=== PATIENT | male | born 1955 | race Caucasian/White ===

== ENCOUNTER 2018-04-14 07:10 | Inpatient (IN) ==
[2018-04-14] MEDS ORDERED: Sodium Chlor 0.9% Inj 500 ML IV.CONT ONE (07:45)
[2018-04-14] MEDS ORDERED: Chlorhexidine Gluconate 2% 1 Pack (2 Cloths) TOPICAL ONE (07:45)
[2018-04-14] MEDS ORDERED: Chlorhexidine 4% Topical 120 APPLIC/120 ML Bottle TOPICAL SCH (07:45)
[2018-04-14] MEDS ORDERED: Metoprolol Tartrate 25 MG Tablet PO ONE (07:45)
[2018-04-14] MEDS ORDERED: Dexamethasone Inj 20 MG/5 ML Vial IV.PUSH SCH (08:00)
[2018-04-14] MEDS ORDERED: ceFAZolin 2 GM Premix Inj 2 GM/50 ML PIGGYBACK IV.SIG SCH (08:00)
[2018-04-14] MEDS ORDERED: Vancomycin Inj 1,000 MG in Sodium Chlor 0.9% Inj 250 ML IV.SIG SCH (08:00)
[2018-04-14] MEDS ORDERED: Sodium Chlor 0.9% Inj 40 ML, Bupivacaine Liposo PF 1.3% Inj 20 ML P-ARTICULR SCH ×2 (08:30)
[2018-04-14] MEDS ORDERED: SODIUM CHLOR 0.9% IV.SIG SCH (08:30)
[2018-04-14] MEDS ORDERED: TRANEXAMIC ACID IV.SIG SCH (08:30)
[2018-04-14] MEDS ORDERED: Bisacodyl 10 MG Supp RECTAL PRN (08:33)
[2018-04-14] MEDS ORDERED: Post-op Orders (for Pharmacy) OTHER STA (08:33)
[2018-04-14] MEDS ORDERED: Zolpidem Tartrate 5 MG Tablet PO PRN (08:33)
[2018-04-14] MEDS ORDERED: HYDROmorphone PF Inj 1 MG/ML Ampul IV.PUSH PRN (08:33)
[2018-04-14] MEDS ORDERED: Tranexamic Acid Inj 3,000 MG in Sodium Chlor 0.9% Inj 100 ML P-ARTICULR ONE (11:00)
--- NOTE | 2018-04-14 11:48 | P.OP ---
Procedure: PREOPERATIVE DIAGNOSIS: Right hip osteoarthritis. POSTOPERATIVE DIAGNOSIS: Right hip osteoarthritis. PROCEDURE PERFORMED: Right total hip arthroplasty posterior approach. SURGEON: Jaswant Angela MD ENTERTAINMENT MUSICIAN: NAEL Go ANESTHESIA: General. ESTIMATED BLOOD LOSS: 200 mL COMPLICATIONS: None. IMPLANT USED: Depuy Corail femoral stem [] 13 high offset [place] Gripsion Cup [] 56 solid Poly insert liner neutral [] 56 x 30 6+4 high offset with a 15 degree posterior high wall femoral head [] 36 ceramic neck length [] +8.5 JUSTIFICATION: This patient presents to the orthopedic clinic and was evaluated by the undersigned with chief complaint of severe right hip pain. The pain is constant and progressive and interfering with activities of daily living. The patient has failed greater than 3 months of nonoperative conservative treatment to include analgesic and nonsteroidal anti-inflammatory medications, physical therapy, cortisone injections, ambulatory assistive aids, home exercise program, activity modification and weight loss. X-rays of the right hip reveal severe osteoarthritis with [id number] joint space narrowing, subchondral sclerosis, subchondral cysts, osteophyte formation with deformity and subluxation. The patient was counseled on risks, benefits, and alternatives to a total hip arthroplasty. The risks were discussed, which include, but are not limited to anesthesia, bleeding, infection, damage to nerves and blood vessels, pain, stiffness, failure of components, fracture, dislocations, leg length discrepancies, blood clots, pulmonary embolism and even . The patient favors the benefits over the risks and did wish to proceed with surgery. PROCEDURE IN DETAIL: Written consent was obtained. The patient was identified by name, taken to the operating room and placed supine on the operating table. General anesthesia administered, along with preoperative IV antibiotic therapy. The patient was then carefully turned to a left lateral decubitus position. A padded arm roll was placed. All bony prominences and compression points were well padded, and the patient's neck position neutral. The right hip and lower extremity were then prepped and draped using isopropyl alcohol, Hibiclens solution and ChloraPrep solution. After a timeout was performed, a longitudinal incision was made over the posterolateral aspect of the right hip. The fascial layer was incised and retracted. Careful attention was paid to protect the sciatic nerve. The piriformis and capsule was incised and tagged with #2 FiberWire suture. The hip was then dislocated posteriorly. An oscillating saw was used to perform a femoral neck cut. The osteoarthritic femoral head and neck component was removed. A 10-blade scalpel was used to excise the labrum. Sequential reaming of the acetabulum was then performed.. A titanium acetabular cup was implanted in a press-fit manner, with approximately 45 degrees of abduction and 15 degrees of anteversion. There was good purchase and fixation after insertion of the cup. A screw hole eliminator was placed, followed by the +4, 15-degree posterior high wall high cross-linked polyethylene liner. The liner was impacted in placed and tested for stability. Attention was turned to the femur where a box osteotome was used to gain entrance into the intramedullary canal of the femur, followed by canal finder and lateralizing reamer. Sequential broaching was performed, followed by calcar planer. Trial components were evaluated and final components subsequently implanted. With the current components, the leg achieved full extension and external rotation without evidence of anterior instability or impingement. The hip could be flexed to 90 degrees and internally rotated to 70 degrees before evidence of posterior stability. Soft tissue tension was appropriate and clinically the leg lengths felt relatively symmetric. The surgical wound was thoroughly irrigated with sterile saline pule lavage antibiotic impregnated solution. The piriformis and capsule were repaired with #2 Fiberwire suture. The fascial layer was closed with #1-Vicryl suture, subcutaneous layer with 2-0 Vicryl suture. Skin was closed with Dermabond. Sterile dressing were applied. The patient tolerated the procedure well. No intraoperative complications noted. Jaswant Buck, Physician Supervisor Inventory Merchandising-Certified was present during the entire procedure to include patient positioning, the procedure itself. The medical necessity of a physician legal assistant was indicated in this case due to the complexity of the procedure. He assisted with appropriate exposure and manipulation of the leg, along with retraction of muscle, tendon bone and neurovascular structures. He assisted with preparation of bone and also implantation of the prosthetic replacement. There was a surgical services asst that assisted with management of the instruments but was not available to assist with the surgical procedure itself. Jaswant Angela MD Surgeon: Jaswant Angela MD
[2018-04-14] MEDS ORDERED: Morphine Inj 4 MG/ML Vial ONE ×2 (12:22)
[2018-04-14] MEDS ORDERED: fentaNYL Citrate Inj 100 MCG/2 ML Ampul ONE ×2 (12:22)
[2018-04-14] MEDS ORDERED: *morphine SULFATE 10 MG/ML PERIprocedure ONLY ONE ×3 (12:34→13:44)
[2018-04-14] MEDS: Senna/Docusate Sodium 8.6/50 MG Tablet PO SCH ×2 (12:37→22:29)
[2018-04-14] MEDS: Multivitamin/Minerals Therapeutic Tablet PO SCH ×2 (12:37→22:29)
[2018-04-14] MEDS: Metoprolol Tartrate 100 MG Tablet PO SCH ×2 (12:37→22:29)
--- NOTE | 2018-04-14 13:18 | XR ---
EXAM DATE: 04/14/2018 1:15 PM EST AGE/SEX: 63 years / Male INDICATIONS: Post-op total right hip arthroplasty. CLINICAL DATA: This is the patient's initial encounter. Patient reports that signs and symptoms have been present for 1 day and indicates a pain score of 6/10. MEDICAL/SURGICAL HISTORY: Arthritis. None. COMPARISON: No prior exams available for comparison. FINDINGS: Multiple views of the right hip and pelvis were obtained and demonstrate that the patient is status p ost right hip arthroplasty. The acetabular and femoral components are intact and in normal alignment. There is adjacent soft tissue swelling and gas. The pelvis is otherwise unremarkable. CONCLUSION: Expected postoperative changes status post arthroplasty. Electronically signed by: Jluis Eric MD 04/14/2018 1:16 PM EST
[2018-04-14] MEDS: ceFAZolin 2 GM Premix Inj 2 GM/50 ML PIGGYBACK IV.SIG SCH ×2 (15:41→22:28)
[2018-04-15] MEDS: ceFAZolin 2 GM Premix Inj 2 GM/50 ML PIGGYBACK IV.SIG SCH (04:37)
[2018-04-15 05:32] LABS: Hematocrit 38.4 % (39.0-51.0); Hemoglobin 13.2 gm/dL (13.0-17.0)
--- NOTE | 2018-04-15 07:52 | P.DCO ---
- Physical Therapy Physical Therapy: Gait training, Safety evaluation, Transfer training, bed to chair Hip: Total hip, Protocol: Right, Posterior hip precautions Canvas Knee Splint: When in bed with 2 pillows between thighs Right Lower Extremity Weight Bearing: Weight bearing as tolerated - Nursing RN days per week: 1 Dressing changes: Do not change dressing - Certification Need for Home Health services: I have seen patient Darian Moe on 04/15/18. My clinical findings support the need for the requested home health care services because: Need for Home Health Services: Limited ability to care for self, High risk of falls Homebound Certification: I certify that my clinical findings support that this patient is homebound because: Homebound Certification: Post-op weakness, Unsteady gait/balance
--- NOTE | 2018-04-15 07:54 | P.PNOP ---
Subjective Interval history: pain under control. Physical Exam Vital signs: Vital Signs 04/14/18 07:54 04/14/18 12:12 04/14/18 12:15 Temperature 98.0 F 97.9 F Pulse Rate 66 136 H 115 H Respiratory Rate 16 15 15 Blood Pressure 134/91 H 130/80 101/64 Pulse Oximetry 99 95 100 04/14/18 12:30 04/14/18 12:45 04/14/18 13:00 Temperature Pulse Rate 101 H 92 H 98 H Respiratory Rate 10 L 12 12 Blood Pressure 119/58 L 108/59 L 95/52 L Pulse Oximetry 95 97 94 L 04/14/18 13:30 04/14/18 14:00 04/14/18 14:45 Temperature Pulse Rate 92 H 90 97 H Respiratory Rate 15 12 14 Blood Pressure 96/64 L 97/54 L 106/60 Pulse Oximetry 96 95 94 L 04/14/18 15:15 04/14/18 16:30 04/14/18 20:00 Temperature 98.0 F 97.3 F L Pulse Rate 105 H 95 H 73 Respiratory Rate 15 16 18 Blood Pressure 101/56 L 120/78 102/63 Pulse Oximetry 93 L 97 92 L 04/15/18 00:00 04/15/18 04:00 Temperature 98.1 F 98.3 F Pulse Rate 78 76 Respiratory Rate 18 18 Blood Pressure 109/80 109/72 Pulse Oximetry 96 96 Intake & Output 04/14/18 04/15/18 04/15/18 18:59 06:59 18:59 Intake Total 2468 / 2468 1100 / 1100 Output Total 300 / 300 700 / 700 Balance 2168 / 2168 400 / 400 Weight 120 kg 121.9 kg Intake: IV 1668 / 1668 1100 / 1100 LR 1000 mL Inj 1,000 ML @ 80 1000 / 1000 1000 / 1000 mls/hr IV.CONT .[id number] KENDAL Rx# :[id number] Cyklokapron Inj 1,800 MG In NS 118 / 118 Inj 100 ML @ 200 mls/hr IV.SIG CREWMAN ARMOURED PERSONNEL CARRIER M113 KENDAL Rx#:[id number] Vancomycin Inj 1,000 MG In NS 250 / 250 Inj 250 ML @ 250 mls/hr IV.SIG CREWMAN [employer]RIER M113 KENDAL Rx#:[id number] Ancef 2 GM Premix Inj 2 gm In 100 / 100 100 / 100 50 ml @ 100 mls/hr IV.SIG Q6H KENDAL Rx#:[id number] Cyklokapron Inj 3,000 MG In NS 200 / 200 Inj 100 ML @ 200 mls/hr P- ARTICULR ONCE ONE Rx#:[id number] Anesthesia Amount 800 / 800 Output: Urine 700 / 700 Estimated Blood Loss 300 / 300 Other: Weight On Admission 120 kg Narrative: in bed, nad dressing c/d/i neg homans nvi Results - Labs CBC & Chem 7: 04/15/18 04:03 Laboratory Results - last 24 hr 04/14/18 04/15/18 08:00 04:03 Hgb 13.2 Hct 38.4 L Blood Type A Positive Antibody Screen Negative - Imaging Impressions Hip X-Ray 04/14/18 08:30 CONCLUSION: Expected postoperative changes status post arthroplasty. Assessment and Plan - Ortho Post Op Day # 1 - Assessment and Plan s/p R AMPARO posterior approach wbat - posterior hip precautions ok to maintain dressing unless saturated asa 81 d/c planning home with PT - cleared f/up dr. melissa 2 weeks
[2018-04-15] MEDS: Senna/Docusate Sodium 8.6/50 MG Tablet PO SCH (08:07)
[2018-04-15] MEDS: Metoprolol Tartrate 100 MG Tablet PO SCH (08:07)
[2018-04-15] MEDS: Multivitamin/Minerals Therapeutic Tablet PO SCH (08:07)
== END 2018-04-15 12:25 | disposition home health service (06) ==
LOC: HSDI 07:10 → N06 16:52
PROVIDERS: ADMIT Orthopaedic Surgery Sports Medicine; ATTEND Orthopaedic Surgery Sports Medicine